=== PATIENT | female | born 1995 | race American Indian/Alaskan Native ===

== ENCOUNTER 2017-09-16 12:00 | Emergency (ER) | payer BC ==
[~2017-09-16] VITALS: Ht 165.1 cm; Wt 74.0 kg
[2017-09-16 12:10] VITALS: BP 139/82
[2017-09-16] MEDS ORDERED: SULF1TAB49 PO (12:51)
[2017-09-16] MEDS ORDERED: HYDR-569 PO (12:51)
== END 2017-09-16 13:11 | disposition home or self-care (01) ==
LOC: ER 12:01
DX: N75.8 Other diseases of Bartholin's gland (principal); Z79.899 Other long term (current) drug therapy
CPT/HCPCS: 99283